=== PATIENT | male | born 1965 | race Caucasian/White ===

== ENCOUNTER 2023-09-02 23:35 | Inpatient (IN) | payer OTHER ==
[~2023-09-02] VITALS: Ht 165.1 cm; Wt 83.7 kg
[2023-09-02 23:52] LABS: HEMATOCRIT. 41.9 % (42.0-52.0); HEMOGLOBIN. 14.5 g/dL (14.0-18.0); MEAN CORPUSCULAR HEMOGLOBIN 33.8 pg (28.0-32.0); MEAN CORPUSCULAR HGB CONC 34.6 g/dL (31.0-37.0); MEAN CORPUSCULAR VOLUME 97.8 fL (80.0-94.0); MEAN PLATELET VOLUME 6.3 fl (7.4-10.4); PLATELET 229 x1000/uL (130-400); RED BLOOD CELL COUNT 4.28 mill/uL (4.7-6.1); RED CELL DISTRIBUTION WIDTH 13.5 % (11.6-14.6); WHITE BLOOD COUNT 11.1 x1000/uL (4.5-11.0)
[2023-09-02 23:53] LABS: DIFFERENTIAL COMMENT 1
[2023-09-03] LABS: CHLORIDE 105 mEq/L (98-107); SODIUM 138 mEq/L (136-145)
[2023-09-03 00:01] LABS: CARBON DIOXIDE 23 mEq/L (21-32)
[2023-09-03 00:02] LABS: CALCIUM 8.8 mg/dL (8.7-10.4); PROTHROMBIN TIME 11.1 sec (9.6-11.0)
[2023-09-03 00:06] LABS: GLUCOSE 135 mg/dL (70-105)
[2023-09-03 00:07] LABS: UREA NITROGEN BLOOD 20 mg/dL (9-23)
[2023-09-03 00:08] LABS: ALANINE AMINOTRANSFERASE 34 IU/L (10-49); ALBUMIN 4.5 g/dL (3.2-4.8); ASPARTATE AMINOTRANSFERASE 22 IU/L (<34); TROPONIN I HIGH SENSITIVITY 8 ng/L (3.0-53)
[2023-09-03 00:09] LABS: BILIRUBIN DIRECT 0.3 mg/dL (<=3.0); PROTEIN TOTAL 7.5 g/dL (6.0-8.3)
[2023-09-03] MEDS ORDERED: IODIXANOL 320 MG/ML 150ML BOTTLE IV ONE (00:10)
[2023-09-03] MEDS ORDERED: LIDOCAINE HCL 1% 20ML VIAL ONE (00:10)
[2023-09-03] MEDS ORDERED: FENTANYL CITRATE/PF 50MCG/ML 2ML VIAL ONE (00:10)
[2023-09-03] MEDS ORDERED: MIDAZOLAM HCL 2 MG/2 ML VIAL ONE (00:10)
[2023-09-03] MEDS ORDERED: HEPARIN 1000 UNITS/ML 10ML ONE (00:10)
[2023-09-03] MEDS ORDERED: HEPARIN 1,000 UNITS PREMIX 1,500 ML IV ONE (00:11)
[2023-09-03 00:13] LABS: ATYPICAL LYMPHOCYTES 2; GIANT PLATELETS 1+; OVALOCYTES 1+; PLATELET ESTIMATE NORMAL; TEAR DROP CELLS 1+
[2023-09-03] MEDS ORDERED: EPINEPHRINE 0.1MG/ML (1:10,000) 10ML SYR ONE (00:20)
[2023-09-03 02:03] VITALS: BP 130/73; PULSE 82; RESP 17; TEMP 98.2
[2023-09-03 02:09] LABS: CARBON DIOXIDE 22 mEq/L (21-32); CHLORIDE 106 mEq/L (98-107); POTASSIUM 3.8 mEq/L (3.5-5.1); SODIUM 137 mEq/L (136-145)
[2023-09-03 02:10] LABS: CALCIUM 8.5 mg/dL (8.7-10.4)
[2023-09-03 02:14] LABS: CREATININE 0.8 mg/dL (0.6-1.3); GLUCOSE 119 mg/dL (70-105)
[2023-09-03 02:15] LABS: LDL CHOLESTEROL 106 mg/dL (5-100); TRIGLYCERIDE 162 mg/dL (0-150); UREA NITROGEN BLOOD 18 mg/dL (9-23)
[2023-09-03 02:16] LABS: ALANINE AMINOTRANSFERASE 31 IU/L (10-49); ALBUMIN 4.2 g/dL (3.2-4.8); ASPARTATE AMINOTRANSFERASE 20 IU/L (<34); TROPONIN I HIGH SENSITIVITY 9 ng/L (3.0-53)
[2023-09-03 02:17] LABS: BILIRUBIN TOTAL 0.9 mg/dL (0.1-1.0); CHOLESTEROL 157 mg/dL (<200); HDL CHOLESTEROL 31 mg/dL (>55)
[2023-09-03] MEDS: PANTOPRAZOLE 40MG DR TABLET PO SCH (06:23)
[2023-09-03 08:00] VITALS: BP 130/80; PULSE 71; RESP 14; TEMP 98
[2023-09-03] MEDS: CARVEDILOL 3.125 MG TABLET PO SCH (08:26)
[2023-09-03] MEDS: LOSARTAN 25 MG TABLET PO SCH (08:26)
[2023-09-03] MEDS: ASPIRIN 81MG TABLET PO SCH (08:26)
[2023-09-03] MEDS ORDERED: NOREPINEPHRINE 8MG in NS 250ML PREMIX IV ONE (09:00)
[2023-09-03] MEDS ORDERED: COR3 PO (12:23)
[2023-09-03] MEDS ORDERED: LIP40 PO (12:23)
[2023-09-03] MEDS ORDERED: ASPI-1160 PO (12:23)
[2023-09-03] MEDS ORDERED: LOSA25TA26 PO (12:23)
[2023-09-03 12:29] VITALS: BP 130/80; PULSE 71; TEMP 98.3; O2SAT 97
[2023-09-03] MEDS ORDERED: LOPERAMIDE HCL 2MG CAPSULE PO PRN (12:30)
[2023-09-03] MEDS: LOPERAMIDE HCL 2MG CAPSULE PO NR (12:48)
[2023-09-03] MEDS ORDERED: ATORVASTATIN CALCIUM 40MG TABLET PO SCH (21:00)
== END 2023-09-03 15:10 | disposition home or self-care (01) | DRG 281 ==
LOC: ER 23:35 → CVICU 23:49 → EDBEDREQ 23:51 → 3WST 09-03 01:30
PROVIDERS: ADMIT Internal Medicine; ATTEND Internal Medicine
PROC: 4A023N7 Measurement of Cardiac Sampling and Pressure, Left Heart, Percutaneous Approach (ICD-10-PCS; principal; 2023-09-02)
PROC: B211YZZ Fluoroscopy of Multiple Coronary Arteries using Other Contrast (ICD-10-PCS; 2023-09-02)
PROC: B215YZZ Fluoroscopy of Left Heart using Other Contrast (ICD-10-PCS; 2023-09-02)
DX: I21.09 ST elevation (STEMI) myocardial infarction involving other coronary artery of anterior wall (principal); I51.81 Takotsubo syndrome; Z20.822 Contact with and (suspected) exposure to COVID-19; I10 Essential (primary) hypertension; E78.5 Hyperlipidemia, unspecified; R61 Generalized hyperhidrosis; Z82.49 Family history of ischemic heart disease and other diseases of the circulatory system
CPT/HCPCS: 36415; 71045; 80048; 80053; 80061; 80076; 83036; 83735; 83880; 84484; 85025; 85379; 87426; 93005; 93458; 99291; C1760; C1769; C1887; C1893; J1644; J2250; J3010; J3490; Q9967